=== PATIENT | male | born 1950 | race Caucasian/White ===

== ENCOUNTER 2018-02-03 13:56 | Emergency (ER) | payer MEDICARE, BC ==
[2018-02-03] MEDS ORDERED: Bacitracin Oint 1 GM U/D Packet TOP ONE (15:00)
--- NOTE | 2018-02-03 15:05 | EDM.PDOC ---
ED HPI GENERAL MEDICAL PROBLEM - General Chief Complaint: Skin Complaint Stated Complaint: FISH HOOK Time Seen by Provider: 02/03/18 15:01 Source of Information: Reports: Patient History Limitations: Reports: No Limitations - History of Present Illness INITIAL COMMENTS - FREE TEXT/NARRATIVE: pt had a hook cut off very short and it was sinking back into the tissue of the rt ring finger. Onset: Today Duration: Hour(s): Location: Reports: Upper Extremity, Right Associated Symptoms: Reports: No Other Symptoms - Related Data Allergies Allergy/AdvReac Type Severity Reaction Status Date / Time No Known Allergies Allergy Verified 02/03/18 14:46 Home Meds: Home Meds . [Unable to Verify Home Med List] 02/03/18 [History] ED ROS GENERAL - Review of Systems Review Of Systems: See Below Constitutional: Reports: No Symptoms HEENT: Reports: No Symptoms Respiratory: Reports: No Symptoms Cardiovascular: Reports: No Symptoms Endocrine: Reports: No Symptoms GI/Abdominal: Reports: No Symptoms : Reports: No Symptoms Musculoskeletal: Reports: Other ( fish hook in the rt ring finger) ED EXAM, SKIN/RASH Exam: See Below Text/Narrative:: pt has a fishook cut very short in the rt ring finger on the adam aspect. Exam Limited By: No Limitations General Appearance: Alert, Mild Distress Ears: Normal TMs Nose: Normal Inspection Throat/Mouth: Normal Inspection Extremities: Other ( Rt ring finger has a fishook that was cut very short. ) Course - Vital Signs Last Recorded V/S: Last Vital Signs Temp Pulse 76 02/03/18 15:20 Resp 14 02/03/18 15:20 BP 167/90 H 02/03/18 15:20 Pulse Ox 91 L 02/03/18 15:20 - Orders/Labs/Meds Meds: Medications Discontinued Medications Generic Name Dose Route Start Last Admin Trade Name Freq PRN Reason Stop Dose Admin Bacitracin 1 dose 02/03/18 15:00 02/03/18 15:23 Bacitracin Oint 1 Gm TOP 02/03/18 15:01 1 dose ONETIME ONE Administration Lidocaine HCl 5 ml 02/03/18 14:55 02/03/18 15:23 Xylocaine-Mpf 1% INJECT 02/03/18 14:56 5 ml ONETIME ONE Administration - Re-Assessments/Exams Free Text/Narrative Re-Assessment/Exam: 02/03/18 15:04 The hook was grabbed with a forceps to prevent it from sinking into the tissue. The area had lidocaine injected. Because the hook was so short a small incision was made where the point could be felt. The hook was grabbed and pulled out. He is current with his tetanus. The wound was closed with 5-0 prolene. Departure - Departure Time of Disposition: 15:12 Disposition: Home, Self-Care 01 Condition: Fair Clinical Impression: [place] injury to finger - Discharge Information Instructions: Puncture Wound, [id number] Referrals: PCP,None [Primary Care Provider] - Forms: ED Department Discharge Care Plan Goals: keep cpvered, sr in 7-8 days, keep dry.
== END 2018-02-03 15:25 | disposition home or self-care (01) ==
LOC: JP.ED 13:56
DX: S60.454A Superficial foreign body of right ring finger, initial encounter (principal); W45.8XXA Other foreign body or object entering through skin, initial encounter
CPT/HCPCS: 10120; 99283-25